=== PATIENT | male | born 2000 | race Caucasian/White ===

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

== ENCOUNTER 2022-05-21 12:15 | Emergency (ER) | payer SELFPAY ==
--- OUTSIDE RECORDS SUMMARY | 2022-05-21 12:19 | XMS REPORT | Continuity of Care Document ---
:2000 Author Organization [facility] t Address [address] [place] [address] [place] [id number] Care Team Providers Name Role Phone PCP, PATIENT DOES NOT HAVE A Primary Care Physician Unavaila NELY Mahan Attending Clinician Unavailable Nely Arzate Attending Clinician MARY BETH CROWDER Attending Clinician Unavailable Mary Beth Stein Attending Clinician Payers Payer Name Policy Type Policy Number Effective Date Expiration Date [facility] [id number] 2015 CHOICE 00:00:00 Problems Condition Condition Condition Status Onset Resolution Last Treating Co mments Source Name Details Category Date Date Treatment Clinician Date No known No known Disease Unive rs active active ity of problems problems [facility] Allergies, Adverse Reactions, Alerts Allergy Allergy Status Severity Reaction(s) Onset Inactive Treating Comm ents Source Name Type Date Date Clinician NO KNOWN Drug Active Univers ALLERGIE Class ity of S [facility] Social History Social Habit Start Date Stop Date Quantity Comments Source Exposure to 2021-07-17 2021-07-27 Not sure [facility] SARS-CoV-2 (event) 00:00:00 14:04:00 Medica l Branch Alcohol intake 2015-06-19 2015-06-19 0 /d [facility] 00:00:00 00:00:00 Medical Branch Sex Assigned At [birth year] [facility] [place] 00:00:00 00:00:00 Medical Branch Smoking Status Start Date Stop Date Source Never smoker [facility] Medical Branch Medications Ordered Filled Start Stop Current Ordering Indication Dosage Frequency Signature Comments Components Source Medication Medication Date Date Medication? Clinician (SIG) Name Name dexamethaso 2021- No 10mg 10 mg, Uni vers ne 04-14 Oral, ity of (DECADRON 02:15: 01:33 [place]CE, 1 [place] 00 :00 dose, On Medic al injection 04/13/21 Bran ch 10 mg at 2014, STAT chlorhexidi Yes [id number] 15mL Swish and Univers ne 0.12 % 2-01 spit out ity of mouthwash 00:00: 15 mL 2 [place] 00 (two) Medical times Branch daily. valACYclovi Yes [id number] 500mg Take 1 Univers r 500 mg 2-01 tablet by ity of tablet 00:00: mouth 2 [place] 00 (two) Medical times Branch daily. chlorhexidi Yes [id number] 15mL Swish and Univers ne 0.12 % 2-01 spit out ity of mouthwash 00:00: 15 mL 2 [place] 00 (two) Medical times Branch daily. valACYclovi Yes [id number] 500mg Take 1 Univers r 500 mg 2-01 tablet by ity of tablet 00:00: mouth 2 [place] 00 (two) Medical times Branch daily. HYDROcodone No Unive rs -acetaminop 06-15 ity of hen (NORCO 00:00: 00:00 [place] 5) 5-325 mg 00 :00 Medical tablet Branch ibuprofen 2021- No Univers (MOTRIN) 06-15 ity of 800 mg 00:00: 00:00 [place] tablet 00 :00 Medical Branch amphetamine No Unive rs -dextroamph 05-20 ity of etamine 00:00: 00:00 [place] (ADDERALL 00 :00 Medical XR) 20 mg Branch 24 hr capsule Immunizations Ordered Filled Immunization Date Status Comments [facility] Immunization Name Name Influenza Virus 2011-01-13 Completed Universit y of Vaccine 00:00:00 [facility] Influenza Virus 2011-01-13 Completed Universit y of Vaccine 00:00:00 [facility] DTAP 2007-07-23 Completed University of 00:00:00 [facility] HEPATITIS A 2007-07-23 Completed University of 00:00:00 [facility] MMR 2007-07-23 Completed University of 00:00:00 [facility] Polio (IPV/OPV) 2007-07-23 Completed Universit y of 00:00:00 [facility] DTAP 2007-07-23 Completed University of 00:00:00 [facility] HEPATITIS A 2007-07-23 Completed University of 00:00:00 [facility] MMR 2007-07-23 Completed University of 00:00:00 [facility] Polio (IPV/OPV) 2007-07-23 Completed Universit y of 00:00:00 [facility] HEPATITIS A 2005-03-30 Completed University of 00:00:00 [facility] HEPATITIS A 2005-03-30 Completed University of 00:00:00 [facility] HIB 4 Dose Schedule 2004-06-01 Completed Unive rsity of 00:00:00 [facility] Pediarix (dtap/hep 2004-06-01 Completed Univer sity of B/ipv) 00:00:00 [facility] Pneumococcal 13 2004-06-01 Completed Universit y of Conjugate, PCV13 00:00:00 [facility] dical (Prevnar 13) Branch HIB 4 Dose Schedule 2004-06-01 Completed Unive rsity of 00:00:00 [facility] Pediarix (dtap/hep 2004-06-01 Completed Univer sity of B/ipv) 00:00:00 [facility] Pneumococcal 13 2004-06-01 Completed Universit y of Conjugate, PCV13 00:00:00 [facility] dical (Prevnar 13) Branch MMR 2003-10-03 Completed University of 00:00:00 [facility] MMR 2003-10-03 Completed University of 00:00:00 [facility] Varicella 2003-09-13 Completed University of (varivax)(chicken 00:00:00 [place] M edical pox) Branch Varicella 2003-09-13 Completed University of (varivax)(chicken 00:00:00 [place] M edical pox) Branch HIB 4 Dose Schedule 2003-03-31 Completed Unive rsity of 00:00:[address] [facility] Branch Pediarix (dtap/hep 2003-03-31 Completed Univer sity of B/ipv) 00:00:[address] [facility] Branch Pneumococcal 13 2003-03-31 Completed Universit y of Conjugate, PCV13 00:00:00 [place] Me dical (Prevnar 13) Branch HIB 4 Dose Schedule 2003-03-31 Completed Unive rsity of 00:00:[address] [facility] Branch Pediarix (dtap/hep 2003-03-31 Completed Univer sity of B/ipv) 00:00:00 [facility] Pneumococcal 13 2003-03-31 Completed Universit y of Conjugate, PCV13 00:00:00 [place] Me dical (Prevnar 13) Branch HIB 4 Dose Schedule 2002 Completed Unive rsity of 00:00:[address] [facility] Branch Pediarix (dtap/hep 2002 Completed Univer sity of B/ipv) 00:00:00 [facility] Pneumococcal 13 2002 Completed Universit y of Conjugate, PCV13 00:00:00 [place] Me dical (Prevnar 13) Branch HIB 4 Dose Schedule 2002 Completed Unive rsity of 00:00:00 [facility] Pediarix (dtap/hep 2002 Completed Univer sity of B/ipv) 00:00:00 [facility] Pneumococcal 13 2002 Completed Universit y of Conjugate, PCV13 00:00:00 [place] Me dical (Prevnar 13) Branch HIB 4 Dose Schedule 2002 Completed Unive rsity of 00:00:[address] [facility] Branch Pediarix (dtap/hep 2002 Completed Univer sity of B/ipv) 00:00:00 [facility] Pneumococcal 13 2002 Completed Universit y of Conjugate, PCV13 00:00:00 [place] Me dical (Prevnar 13) Branch HIB 4 Dose Schedule 2002 Completed Unive rsity of 00:00:[address] [facility] Branch Pediarix (dtap/hep 2002 Completed Univer sity of B/ipv) 00:00:00 [facility] Pneumococcal 13 2002 Completed Universit y of Conjugate, PCV13 00:00:00 [place] Me dical (Prevnar 13) Branch Vital Signs Vital Name Observation Time Observation Value Comments Source Systolic blood 2021-07-27 19:01:00 176 mm[Hg] Univer sity of pressure [facility] Diastolic blood 2021-07-27 19:01:00 88 mm[Hg] Unive rsity of pressure [facility] Heart rate 2021-07-27 19:01:00 97 /min [facility] Body temperature 2021-07-27 19:01:00 36.67 [facility] [place] [facility] Respiratory rate 2021-07-27 19:01:00 18 /min [facility] Body height 2021-07-27 19:01:00 185.4 cm [facility] Body weight 2021-07-27 19:01:00 140.615 kg [facility] BMI 2021-07-27 19:01:00 40.90 kg/m2 [facility] Body mass index 2021-07-27 19:01:00 99.70 % Unive rsity of (BMI) [Percentile] [facility] Per age and sex Branch Oxygen saturation in 2021-07-27 19:01:00 100 /min [facility] Arterial blood by [facility] [place] [facility] Pulse oximetry Branch Oxygen saturation in 2021-04-14 01:47:35 97 /min [facility] Arterial blood by [facility] [place] [facility] Pulse oximetry Branch Systolic blood 2021-04-14 01:39:00 149 mm[Hg] Univer sity of pressure [facility] Diastolic blood 2021-04-14 01:39:00 105 mm[Hg] Unive rsity of [facility] Heart rate 2021-04-14 00:33:00 101 /min [facility] Body temperature 2021-04-14 00:33:00 37.06 Valeri [facility] [place] [facility] Respiratory rate 2021-04-14 00:33:00 18 /min [facility] Body weight 2021-04-14 00:33:00 129.275 kg [facility] Procedures Procedure Date / Time Performed Performing Clinician Sourjefry e RAPID STREP SCREEN 2021-07-27 19:21:00 Nely Palma [facility] FOR GROUP A Medical Branch CONSENT/REFUSAL FOR 2021-07-27 18:56:59 Doctor Unassigned, No [facility] [place] DIAGNOSIS AND Name Medical Branch TREATMENT NOTICE OF PRIVACY 2021-04-14 00:26:52 Doctor Unassigned, No Univ ersity [facility] PRACTICES Name [facility] Branch CONSENT/REFUSAL FOR 2021-04-14 00:25:38 Doctor Unassigned, No [facility] [place] DIAGNOSIS AND Name Medical Branch TREATMENT Encounters Start End Encounter Admission Attending Care Care Encounter Source Date/Time Date/Time Type Type Clinicians Facility Department ID 2021-07-27 2021-07-27 Emergency X [facility] ERT [id number] Univers 14:02:00 15:17:00 NELY anirudh [facility] 2021-07-27 2021-07-27 Emergency [facility] [id number] Univers 14:02:00 15:17:00 Nely COXALYSSA [id number] i ty of [place] [id number] [facility] [id number] [facility] 084 Branch 2021-04-13 2021-04-13 Emergency X [facility] ERT [id number] Univers 18:36:00 19:51:00 MARY BETH anirudh [facility] 2021-04-13 2021-04-13 Emergency [facility] [id number] Univers 18:36:00 19:51:00 Mary Beth [facility] [id number] i ty of [place] [id number] [facility] [id number] [place] [id number] Branch Results This patient has no known results.
[2022-05-21] MEDS ORDERED: TOBRAMYCIN SULF 0.3% OPTH OINT ONE (12:43)
[2022-05-21 13:16] VITALS: BP 141/77; TEMP 98; O2SAT 98
--- NOTE | 2022-06-03 16:13 | ER ---
Nurse's Notes [facility] Name: Taiwo Heath Age: 21 yrs Sex: Male : 2000 Arrival Date: 05/21/2022 Time: 12:19 Bed 11 Private MD: Diagnosis: Other acute conjunctivitis Presentation: 05/21 12:25 Chief complaint: Patient states: "Both of my eyes are red and itchy. It started a week mb9 ago". Coronavirus screen: Vaccine status: Patient reports being unvaccinated. Ebola Screen: No symptoms or risks identified at this time. Initial Sepsis Screen: Does the patient meet any 2 criteria? No. Patient's initial sepsis screen is negative. Does the patient have a suspected source of infection? No. Patient's initial sepsis screen is negative. Risk Assessment: Do you want to hurt yourself or someone else? Patient reports no desire to harm self or others. Onset of symptoms was May 13, 2022. 12:25 Method Of Arrival: Ambulatory mb9 12:25 Acuity: GERALD 4 mb9 Triage Assessment: 12:28 General: Appears uncomfortable, Behavior is calm, cooperative. Pain: Complains of pain mb9 in right eye and left eye. EENT: Eyes red and inflammed. Reports pain in right eye and left eye. Neuro: Level of Consciousness is awake, alert, obeys commands, Oriented to person, place, time, situation, Appropriate for age. Cardiovascular: Rhythm is regular. Respiratory: Airway is patent Respiratory effort is even, unlabored, Respiratory pattern is regular, symmetrical. GI: No signs and/or symptoms were reported involving the gastrointestinal system. : No signs and/or symptoms were reported regarding the genitourinary system. Derm: Skin is pink, warm \\T\\ dry. Musculoskeletal: Range of motion: intact in all extremities. Historical: - Allergies: 12:28 No Known Allergies; mb9 - Home Meds: 12:28 None [Active]; mb9 - PMHx: 12:28 None; mb9 - PSHx: 12:28 None; mb9 - Immunization history:: Adult Immunizations up to date. - Social history:: Smoking status: Patient denies any tobacco usage or history of. Screenin:29 [facility] ED Fall Risk Assessment (Adult) History of falling in the last 3 months, mb9 including since admission No falls in past 3 months (0 pts) Confusion or Disorientation No (0 pts) Intoxicated or Sedated No (0 pts) Impaired Gait No (0 pts) Mobility Assist Device Used No (0 pt) Altered Elimination No (0 pt) Score/Fall Risk Level 0 - 2 = Low Risk Oriented to surroundings, Maintained a safe environment, Educated pt \\T\\ family on fall prevention, incl call for assistance when getting out of bed. Abuse screen: Denies threats or abuse. Nutritional screening: No deficits noted. Tuberculosis screening: No symptoms or risk factors identified. Assessment: 12:29 Reassessment: see triage assessment. mb9 Vital Signs: 12:25 Pulse 77; Resp 20; Temp 98; Pulse Ox 98% on R/A; Weight 133.81 kg; Height 6 ft. 1 in. ; mb9 Pain 5/10; 12:29 BP 141 / 77; mb9 12:25 Body Mass Index 38.92 (133.81 kg, 185.42 cm) mb9 12:25 Pain Scale: Adult 9 ED Course: 12:19 Patient arrived in ED. mr 12:25 Arm band placed on. mb9 12:27 Marquis Adams PA is PHCP. m 12:27 Phi Warren MD is Attending Physician. [facility] 12:28 Triage completed. mb9 12:29 Bed in low position. Call light in reach. Side rails up X 1. Client placed on mb9 continuous cardiac and pulse oximetry monitoring. NIBP monitoring applied. 12:29 No provider procedures requiring assistance completed. mb9 12:32 Jocy Hanna, CRISTOPHER is Primary Nurse. mb9 12:33 Patient did not have IV access during this emergency room visit. mb9 13:03 Francois Gonzalez MD is Referral Physician. [facility] Administered Medications: 12:40 Drug: Tobrex Ophthalmic Ointment 0.3 % 1 application Route: Ophthalmic; Site: both eyes;mb9 12:40 Follow up: Response: No adverse reaction mb9 Medication: 12:29 VIS not applicable for this client. mb9 Outcome: 13:03 Discharge ordered by . m 13:10 Discharged to home ambulatory. mb9 13:10 Condition: stable 13:10 Discharge instructions given to patient, Instructed on discharge instructions, follow up and referral plans. Demonstrated understanding of instructions, follow-up care, medications, Prescriptions given X 1. 13:10 Patient left the ED. mb9 Signatures: Marquis Adams PA PA jmm Rivera Jocy mr Hanna, Jocy Guzman RN RN mb9
--- NOTE | 2022-06-03 16:13 | EDPHYS ---
Physician Documentation [facility] Name: Taiwo Heath Age: 21 yrs Sex: Male : 2000 Arrival Date: 05/21/2022 Time: 12:19 Bed 11 Private MD: ED Physician Phi Warren Historical: - Allergies: 05/21 12:28 No Known Allergies; mb9 - Home Meds: 12:28 None [Active]; mb9 - PMHx: 12:28 None; mb9 - PSHx: 12:28 None; mb9 - Immunization history:: Adult Immunizations up to date. - Social history:: Smoking status: Patient denies any tobacco usage or history of. Vital Signs: 12:25 Pulse 77; Resp 20; Temp 98; Pulse Ox 98% on R/A; Weight 133.81 kg; Height 6 ft. 1 in. ; mb9 Pain 5/10; 12:29 BP 141 / 77; mb9 12:25 Body Mass Index 38.92 (133.81 kg, 185.42 cm) mb9 12:25 Pain Scale: Adult mb9 MDM: 12:33 Patient medically screened. [facility] 13:02 Data reviewed: vital signs, nurses notes. I considered the following discharge [facility] prescriptions or medication management in the emergency department Medications were administered in the Emergency Department. See MAR. Administered Medications: 12:40 Drug: Tobrex Ophthalmic Ointment 0.3 % 1 application Route: Ophthalmic; Site: both eyes;mb9 12:40 Follow up: Response: No adverse reaction mb9 Disposition: 13:33 Co-signature as Attending Physician, Phi Warren MD I reviewed the patient's care rt provided by the Advanced Practice Provider and agree with the diagnosis and treatment plan. Disposition Summary: 05/21/22 13:03 Discharge Ordered Location: [facility] Condition: Stable [facility] Diagnosis - Other acute conjunctivitis [facility] Followup: [facility] - With: Francois Gonzalez MD - When: 2 - 3 days - Reason: Recheck today's complaints, Continuance of care, Re-evaluation by your physician Discharge Instructions: - Discharge Summary Sheet jmm - Bacterial Conjunctivitis, Adult m Forms: - Medication Reconciliation Form [facility] - Thank You Letter jmm - Antibiotic Education jmm - Prescription Opioid Use jm Prescriptions: - tobramycin 0.3 % Ophthalmic ointment - instill 0.25 inch by OPHTHALMIC route every 4 hours for 7 days; 1 Unspecified; nichol Refills: 0, Product Selection Permitted Signatures: Marquis Adams PA PA jmm Breneman, Mary Beth, RN RN mb9 Phi Warren MD MD rt
== END 2022-05-21 13:10 | disposition home or self-care (01) ==
LOC: ER 12:15
DX: H10.30 Unspecified acute conjunctivitis, unspecified eye (principal)
CPT/HCPCS: 99283

== ENCOUNTER → 2023-03-05 | Emergency (ER) | payer SELFPAY ==
[~2023-03-05] MED LIST: ACETAMINOPHEN 500 MG TAB ONE; AZITHROMYCIN 250 MG TAB ONE; IBUPROFEN 400 MG TAB ONE; PROMETHAZINE 25 MG TABLET ONE
--- OUTSIDE RECORDS SUMMARY | 2023-03-05 18:36 | XMS REPORT | Continuity of Care Document ---
Author Name Unknown Address [address] [facility] [address] [place], [place] [address] [place] [address] thconnect Address [address] [facility] [address] [place] [address] Care Team Providers Care Metal Or Wood Blocker Name Role Phone Pcp, Patient Does Not Have A Primary Care Physic karen NELY GARCIA Attending Clinician Unavailable Nely Arzate Attending Clinician [phone] Doctor Unassigned, [facility] [place] Attending Clinician U MARY BETH Tobias Attending Clinician Unavailable Mary Beth Stein Attending Clinician Payers Payer Name Policy Type Policy Number Effective Date Expirati on Date Source [employer] [id number] 2015 00:00:00 Problems Condition Name Condition Details Condition Category Status Onset Date Resolution Date Last Treatment Date Treating Clinician Comments Source No known active problems No known active problems Disease [facility] Allergies, Adverse Reactions, Alerts Allergy Name Allergy Type Status Severity Reaction(s) Onset Date Inactive Date Treating Clinician Comments Source NO KNOWN ALLERGIE S Drug Class Active [facility] Social History Social Habit Start Date Stop Date Quantity Comments Source Sexual orientation U [facility] History of Social function 2021-09-21 00:00:00 2021-09-21 00:00:00 [facility] Exposure to SARS-CoV-2 (event) 2021-07-17 00:00:00 2021-07-27 14:04:00 Not sure [facility] Alcohol intake 2015-06-19 00:00:00 2015-06-19 00:00:00 0 /d [facility] Sex Assigned At 2000 00:00:00 2000 00:00:00 [facility] Smoking Status Start Date Stop Date Source Never smoked tobacco [facility] Medications Ordered Medication Name Filled Medication Name Start Date Stop Date Current Medication? Ordering Clinician Indication Dosage Frequency Signature (SIG) Comments Components Source dexamethaso ne (DECADRON PHOSPHATE) injection 10 mg 04-14 02:15: 00 04-14 01:33 :00 No 10mg 10 mg, Oral, ONCE, 1 dose, On Mon04/13/21 at 2015, STAT [facility] valACYclovi r 500 mg tablet 04-13 00:00: 00 Yes [id number] 500mg Take 1 tablet by mouth 2 (two) times daily. [facility] chlorhexidi ne 0.12 % mouthwash 04-13 00:00: 00 Yes [id number] 15mL Swish and spit out 15 mL 2 (two) times daily. [facility] valACYclovi r 500 mg tablet 04-13 00:00: 00 Yes [id number] 500mg Take 1 tablet by mouth 2 (two) times daily. [facility] chlorhexidi ne 0.12 % mouthwash 04-13 00:00: 00 Yes [id number] 15mL Swish and spit out 15 mL 2 (two) times daily. [facility] valACYclovi r 500 mg tablet 04-13 00:00: 00 Yes [id number] 500mg Take 1 tablet by mouth 2 (two) times daily. [facility] chlorhexidi ne 0.12 % mouthwash 04-13 00:00: 00 Yes [id number] 15mL Swish and spit out 15 mL 2 (two) times daily. [facility] HYDROcodone -acetaminop hen (NORCO 5) 5-325 mg tablet 4 00:00: 00 04-13 00:00 :00 No [facility] ibuprofen (MOTRIN) 800 mg tablet 06-15 00:00: 00 04-13 00:00 :00 No [facility] amphetamine -dextroamph etamine (ADDERALL XR) 20 mg 24 hr capsule 05-20 00:00: 00 04-13 00:00 :00 No [facility] Immunizations Ordered Immunization Name Filled Immunization Name Date Status Comments Source Influenza Virus Vaccine 2011-01-13 00:00:00 Completed [facility] Influenza Virus Vaccine 2011-01-13 00:00:00 Completed [facility] DTAP 2007-07-23 00:00:00 Completed [facility] HEPATITIS A 2007-07-23 00:00:00 Completed [facility] MMR 2007-07-23 00:00:00 Completed [facility] Polio (IPV/OPV) 2007-07-23 00:00:00 Completed [facility] DTAP 2007-07-23 00:00:00 Completed [facility] HEPATITIS A 2007-07-23 00:00:00 Completed [facility] MMR 2007-07-23 00:00:00 Completed [facility] Polio (IPV/OPV) 2007-07-23 00:00:00 Completed [facility] HEPATITIS A 2005-03-30 00:00:00 Completed [facility] HEPATITIS A 2005-03-30 00:00:00 Completed [facility] HIB 4 Dose Schedule 2004-06-01 00:00:00 Completed [facility] Pediarix (dtap/hep B/ipv) 2004-06-01 00:00:00 Completed [facility] Pneumococcal 13 Conjugate, PCV13 (Prevnar 13) 2004-06-01 00:00:00 Completed [facility] HIB 4 Dose Schedule 2004-06-01 00:00:00 Completed [facility] Pediarix (dtap/hep B/ipv) 2004-06-01 00:00:00 Completed [facility] Pneumococcal 13 Conjugate, PCV13 (Prevnar 13) 2004-06-01 00:00:00 Completed [facility] MMR 2003-10-03 00:00:00 Completed [facility] MMR 2003-10-03 00:00:00 Completed [facility] Varicella (varivax)(chicken pox) 2003-09-13 00:00:00 Completed [facility] Varicella (varivax)(chicken pox) 2003-09-13 00:00:00 Completed [facility] HIB 4 Dose Schedule 2003-03-31 00:00:00 Completed [facility] Pediarix (dtap/hep B/ipv) 2003-03-31 00:00:00 Completed [facility] Pneumococcal 13 Conjugate, PCV13 (Prevnar 13) 2003-03-31 00:00:00 Completed [facility] HIB 4 Dose Schedule 2003-03-31 00:00:00 Completed [facility] Pediarix (dtap/hep B/ipv) 2003-03-31 00:00:00 Completed [facility] Pneumococcal 13 Conjugate, PCV13 (Prevnar 13) 2003-03-31 00:00:00 Completed [facility] HIB 4 Dose Schedule 2002 00:00:00 Completed [facility] Pediarix (dtap/hep B/ipv) 2002 00:00:00 Completed [facility] Pneumococcal 13 Conjugate, PCV13 (Prevnar 13) 2002 00:00:00 Completed [facility] HIB 4 Dose Schedule 2002 00:00:00 Completed [facility] Pediarix (dtap/hep B/ipv) 2002 00:00:00 Completed [facility] Pneumococcal 13 Conjugate, PCV13 (Prevnar 13) 2002 00:00:00 Completed [facility] Pneumococcal 13 Conjugate, PCV13 (Prevnar 13) 2002 00:00:00 Completed [facility] HIB 4 Dose Schedule 2002 00:00:00 Completed [facility] Pediarix (dtap/hep B/ipv) 2002 00:00:00 Completed [facility] Pneumococcal 13 Conjugate, PCV13 (Prevnar 13) 2002 00:00:00 Completed [facility] HIB 4 Dose Schedule 2002 00:00:00 Completed [facility] Pediarix (dtap/hep B/ipv) 2002 00:00:00 Completed [facility] DTAP Unknown Completed [facility] HIB 4 Dose Schedule Unknown Completed [facility] HIB 4 Dose Schedule Unknown Completed [facility] HIB 4 Dose Schedule Unknown Completed [facility] HIB 4 Dose Schedule Unknown Completed [facility] HEPATITIS A Unknown Completed [facility] HEPATITIS A Unknown Completed [facility] Influenza Virus Vaccine Unknown Completed [facility] MMR Unknown Completed [facility] MMR Unknown Completed [facility] Pediarix (dtap/hep B/ipv) Unknown Completed [facility] Pediarix (dtap/hep B/ipv) Unknown Completed [facility] Pediarix (dtap/hep B/ipv) Unknown Completed [facility] Pediarix (dtap/hep B/ipv) Unknown Completed [facility] Pneumococcal 13 Conjugate, PCV13 (Prevnar 13) Unknown Completed [facility] Pneumococcal 13 Conjugate, PCV13 (Prevnar 13) Unknown Completed [facility] Pneumococcal 13 Conjugate, PCV13 (Prevnar 13) Unknown Completed [facility] Pneumococcal 13 Conjugate, PCV13 (Prevnar 13) Unknown Completed [facility] Polio (IPV/OPV) Unknown Completed [facility] Varicella (varivax)(chicken pox) Unknown Completed [facility] Vital Signs Vital Name Observation Time Observation Value Comments S ource Systolic blood pressure 2021-07-27 19:01:00 176 mm[Hg] [facility] Diastolic blood pressure 2021-07-27 19:01:00 88 mm[Hg] [facility] Heart rate 2021-07-27 19:01:00 97 /min [facility] Body temperature 2021-07-27 19:01:00 36.67 Valeri [facility] Respiratory rate 2021-07-27 19:01:00 18 /min [facility] Body height 2021-07-27 19:01:00 185.4 cm [facility] Body weight 2021-07-27 19:01:00 140.615 kg [facility] BMI 2021-07-27 19:01:00 40.90 kg/m2 [facility] Body mass index (BMI) [Percentile] Per age and sex 2021-07-27 19:01:00 99.70 % [facility] Oxygen saturation in Arterial blood by Pulse oximetry 2021-07-27 19:01:00 100 /min [facility] Oxygen saturation in Arterial blood by Pulse oximetry 2021-04-14 01:47:35 97 /min [facility] Systolic blood pressure 2021-04-14 01:39:00 149 mm[Hg] [facility] Diastolic blood pressure 2021-04-14 01:39:00 105 mm[Hg] [facility] Heart rate 2021-04-14 00:33:00 101 /min [facility] Body temperature 2021-04-14 00:33:00 37.06 Valeri [facility] Respiratory rate 2021-04-14 00:33:00 18 /min [facility] Body weight 2021-04-14 00:33:00 129.275 kg [facility] Procedures Procedure Date / Time Performed Performing Clinicia n Source RAPID STREP SCREEN FOR GROUP A 2021-07-27 19:21:00 Nely Garcia [facility] CONSENT/REFUSAL FOR DIAGNOSIS AND TREATMENT 2021-07-27 18:56:59 Doctor Unassigned, [facility] NOTICE OF PRIVACY PRACTICES 2021-04-14 00:26:52 Doctor Unassigned, [facility] CONSENT/REFUSAL FOR DIAGNOSIS AND TREATMENT 2021-04-14 00:25:38 Doctor Unassigned, [facility] Encounters Start Date/Time End Date/Time Encounter Type Admission Type Attending [facility] Care Facility Care Department Encounter ID Source 2021-07-27 14:02:00 2021-07-27 15:17:00 Emergency X NELY GARCIA [facility] ERT [id number] [facility] 2021-07-27 14:02:00 2021-07-27 15:17:00 Emergency Nely Garcia [facility] 1..[id number] [facility] 2021-04-15 00:00:00 2021-04-15 00:00:00 Patient Secure Msg Doctor Unassigned, [facility] 1..840.114 [id number] [facility] 2021-04-13 18:36:00 2021-04-13 19:51:00 Emergency X MARY BETH CROWDER [facility] ERT [id number] [facility] 2021-04-13 18:36:00 2021-04-13 19:51:00 Emergency Mary Beth Crowder S [facility] 1..[id number] [facility]
--- NOTE | 2023-03-05 19:41 | ER ---
Nurse's Notes [facility] Name: Taiwo Heath Age: 22 yrs Sex: Male : 2000 Arrival Date: 03/05/2023 Time: 18:32 Bed IW2 Private MD: Diagnosis: Oral ulcers, aphthous ulcers , acute pharyngitis Presentation: 03/05 18:58 Chief complaint: Patient states: STATES FEVER AND FLU SYMPTOMS WITH BODY ACHES X 4 db DAYS. STATES TOOK DAYQUIL TODAY. STATES ALSO HAS SORES IN MOUTH. Coronavirus screen: Vaccine status: Patient reports being unvaccinated. Client denies travel out of the [place] in the last 14 days. At this time, the client does not indicate any symptoms associated with coronavirus-19. Ebola Screen: Patient negative for fever greater than or equal to 101.5 degrees Fahrenheit, and additional compatible Ebola Virus Disease symptoms Patient denies exposure to infectious person. Patient denies travel to an Ebola-affected area in the 21 days before illness onset. No symptoms or risks identified at this time. Initial Sepsis Screen: Does the patient meet any 2 criteria? HR > 90 bpm. Does the patient have a suspected source of infection? No. Patient's initial sepsis screen is negative. Risk Assessment: Do you want to hurt yourself or someone else? Patient reports no desire to harm self or others. Onset of symptoms was March 05, 2023. 18:58 Method Of Arrival: Ambulatory db 18:58 Acuity: GERALD 4 db Triage Assessment: 19:00 General: Appears in no apparent distress. comfortable, Behavior is calm, cooperative. db Pain: Complains of pain in mouth. Neuro: Level of Consciousness is awake, alert, obeys commands, Oriented to person, place, time, situation. Historical: - Allergies: 18:59 No Known Allergies; db - PMHx: 18:59 None; db - Immunization history:: Client reports having NOT received the Covid vaccine. - Social history:: Smoking status: Patient denies any tobacco usage or history of. - Family history:: not pertinent. Screenin:00 [facility] ED Fall Risk Assessment (Adult) History of falling in the last 3 months, ko1 including since admission No falls in past 3 months (0 pts). Abuse screen: Denies threats or abuse. Denies injuries from another. Nutritional screening: No deficits noted. Tuberculosis screening: No symptoms or risk factors identified. Assessment: 20:00 Pain: Complains of pain in mouth. ko1 Vital Signs: 18:58 BP 164 / 92; Pulse 108; Resp 18; Temp 99.3; Pulse Ox 99% ; Weight 136.08 kg; Height 6 db ft. 0 in. ; 18:58 Body Mass Index 40.69 (136.08 kg, 182.88 cm) db ED Course: 18:34 Patient arrived in ED. im 18:59 Triage completed. db 19:00 Arm band placed on Patient placed in waiting room. db 19:05 Jorge Alberto Beth MD is Attending Physician. sp4 20:12 Patient has correct armband on for positive identification. Provided Education on: na. ko1 20:12 No provider procedures requiring assistance completed. Patient did not have IV access ko1 during this emergency room visit. Administered Medications: 20:00 Drug: Ibuprofen PO 800 mg PO once Route: PO; ko1 20:00 Drug: AZITHromycin PO 500 mg PO once Route: PO; ko1 20:00 Drug: Promethazine PO 25 mg PO once Route: PO; ko1 20:00 Drug: Acetaminophen PO 1000 mg PO once Route: PO; ko1 Medication: 20:00 VIS not applicable for this client. ko1 Outcome: 19:40 Discharge ordered by . sp4 20:12 Discharged to home ambulatory, ko1 20:12 Condition: stable 20:12 Discharge instructions given to patient, Instructed on discharge instructions, follow up and referral plans. medication usage, Demonstrated understanding of instructions, follow-up care, medications, Prescriptions given X 3, 20:13 Patient left the ED. ko1 Signatures: Ximena Wheeler RN RN ko1 Shannon Guerrier RN RN db Jorge Alberto Beth MD MD sp4 Hanna Gamboa im Corrections: (The following items were deleted from the chart) 19:00 18:58 Chief complaint: Patient states: STATES FEVER AND FLU SYMPTOMS WITH BODY ACHES X db 4 DAYS. STATES TOOK DAYQUIL TODAY db
--- NOTE | 2023-03-05 19:41 | EDPHYS ---
Physician Documentation [facility] Name: Taiwo Heath Age: 22 yrs Sex: Male : 2000 Arrival Date: 03/05/2023 Time: 18:32 Bed IW2 Private MD: ED Physician Jorge Alberto Beth HPI: 03/05 19:06 This 22 yrs old Male presents to ER via Ambulatory with complaints of Flu sp4 Symptoms. 19:33 22-year-old male presents with 4 days of low-grade fever of 100.2 at the max. Body sp4 aches also sore throat and painful oral ulcers. Patient states that in the past he has had MIRM - Mycoplasma-Induced Rash and Mucositis. Patient states that in the past Z-Nitesh would help. Some Magic mouthwash would help. . Historical: - Allergies: 18:59 No Known Allergies; db - PMHx: 18:59 None; db - Immunization history:: Client reports having NOT received the Covid vaccine. - Social history:: Smoking status: Patient denies any tobacco usage or history of. - Family history:: not pertinent. ROS: 19:33 Constitutional: Positive low-grade fever, positive sore throat, positive oral ulcers, sp4 positive body aches 19:33 All other systems are negative, Exam: 19:33 Constitutional: This is a well developed, well nourished patient who is awake, alert, sp4 and in no acute distress. Head/Face: Normocephalic, atraumatic. Eyes: Pupils equal round and reactive to light, extra-ocular motions intact. Lids and lashes normal. Conjunctiva and sclera are not injected. Cornea within normal limits. Periorbital areas with no swelling, redness, or edema. ENT: Nares patent. No nasal discharge, no septal abnormalities noted. Tympanic membranes are normal and external auditory canals are clear. At her oral source, consistent with aphthous ulcers. Signs of bilateral pharyngitis Neck: Trachea midline, no thyromegaly or masses palpated, and no cervical lymphadenopathy. Supple, full range of motion without nuchal rigidity, or vertebral point tenderness. Chest/axilla: Normal chest wall appearance and motion. Nontender with no deformity. No lesions are appreciated. Cardiovascular: Regular rate and rhythm with a normal S1 and S2. No gallops, murmurs, or rubs. Normal PMI, no JVD. No pulse deficits. Respiratory: Lungs have equal breath sounds bilaterally, clear to auscultation and percussion. No rales, rhonchi or wheezes noted. No increased work of breathing, no retractions or nasal flaring. Abdomen/GI: Soft, non-tender, with normal bowel sounds. No distension or tympany. No guarding or rebound. No evidence of tenderness throughout. Back: No spinal tenderness. No costovertebral tenderness. Skin: Warm, dry with normal turgor. Normal color with no rashes, no lesions, and no evidence of cellulitis. MS/ Extremity: Pulses equal, no cyanosis. Neurovascular intact. Full, normal range of motion. Neuro: Awake and alert, GCS 15, oriented to person, place, time, and situation. Cranial nerves II-XII grossly intact. Motor strength 5/5 in all extremities. Sensory grossly intact. Psych: Awake, alert, with orientation to person, place and time. Behavior, mood, and affect are within normal limits Vital Signs: 18:58 BP 164 / 92; Pulse 108; Resp 18; Temp 99.3; Pulse Ox 99% ; Weight 136.08 kg; Height 6 db ft. 0 in. ; 18:58 Body Mass Index 40.69 (136.08 kg, 182.88 cm) db MDM: 19:32 Patient medically screened. sp4 19:37 Differential Diagnosis sepsis, flu, COVID-19, aphthous ulcers. Data reviewed: vital sp4 signs, nurses notes, old medical records. ED course: Oral ulcers and pharyngitis- will prescribe Z-Nitesh, also Magic mouthwash and high-dose ibuprofen. Administered Medications: 20:00 Drug: Ibuprofen PO 800 mg PO once Route: PO; ko1 20:00 Drug: AZITHromycin PO 500 mg PO once Route: PO; ko1 20:00 Drug: Promethazine PO 25 mg PO once Route: PO; ko1 20:00 Drug: Acetaminophen PO 1000 mg PO once Route: PO; ko1 Disposition Summary: 03/05/23 19:40 Discharge Ordered Problem: new sp4 Symptoms: have improved sp4 Condition: Stable sp4 Diagnosis - Oral ulcers, aphthous ulcers , acute pharyngitis sp4 Followup: sp4 - With: Private Physician - When: 7 - 10 days - Reason: Recheck today's complaints Discharge Instructions: - Discharge Summary Sheet sp4 - Oral Ulcers sp4 Forms: - Patient Portal Instructions sp4 Prescriptions: - Benadryl 25 mg Oral capsule - take 1 capsule ORAL route every 8 hours for oral ulcer pain; 60 capsule; sp4 Refills: 0, Product Selection Permitted - Ibuprofen 800 mg Oral Tablet - take 1 tablet ORAL route every 8 hours As needed take with food; 30 tablet; sp4 Refills: 0, Product Selection Permitted - Zithromax Z-Nitesh 250 mg Oral Tablet - take 1 tablet ORAL route as directed for 5 days Day 1 - take two (2) tablets sp4 one time. Day 2, 3, 4 , 5 take one (1) tablet once daily.; 6 tablet; Refills: 0, Product Selection Permitted Signatures: Ximena Wheeler RN RN koShannon Live RN RN db Potepalov, Sergey, MD MD sp4
[2023-03-05 21:30] VITALS: BP 164/92; TEMP 99.3; O2SAT 99
== END ==
LOC: ER 18:32
DX: K12.0 Recurrent oral aphthae (principal); J02.9 Acute pharyngitis, unspecified; Z28.310 Unvaccinated for COVID-19
CPT/HCPCS: 99283; Q0169

== ENCOUNTER → 2023-03-12 | Emergency (ER) | payer SELFPAY ==
[~2023-03-12] MED LIST changes: -ACETAMINOPHEN 500 MG TAB ONE; -AZITHROMYCIN 250 MG TAB ONE; +CLINDAMYCIN 600MG/D5W 50 ML IV ONE; +HYDROCODONE/APAP 10/325 TAB ONE; -IBUPROFEN 400 MG TAB ONE; +KETOROLAC 30 MG/ML INJ ONE; +NA CHLORIDE 0.9% 1,000 ML ONE; -PROMETHAZINE 25 MG TABLET ONE
--- OUTSIDE RECORDS SUMMARY | 2023-03-12 12:53 | XMS REPORT | Continuity of Care Document ---
Author Name Unknown Address [address] [place] [address] thconnect Address [address] [place] [address] [address] [place] [address] Care Team Providers Care Head Waitress Name Role Phone Unavailable Unavailable Unavailable
[2023-03-12 13:32] LABS: Absolute Lymphocytes (CBC) 9.1 K/uL (0.7-4.9); Hematocrit 44.7 % (39.6-49.0); Lymphocytes % 59.2 % (15.3-44.8); MCV 91.4 fL (80-100); MPV 9.4 fL (7.6-11.3); Platelets 176 thou/uL (152-406); RBC Red Blood Cell Count 4.89 M/uL (4.33-5.43)
[2023-03-12 13:45] LABS: Potassium 4.4 mEq/L (3.5-5.1)
[2023-03-12 14:07] LABS: Blood Morphology Comment NOT SEEN (NOT SEEN); Platelet Estimate ADEQ; White Blood Cell Scan OK (OK)
--- NOTE | 2023-03-12 14:30 | RAD REPORT ---
EXAM DESCRIPTION: CT - Soft Tissue Neck W/Contr CLINICAL HISTORY: Fever;Sore throat Fever, sore throat COMPARISON: <Comparisons> TECHNIQUE All CT scans are performed using dose optimization technique as appropriate and may includ e automated exposure control or mA/KV adjustment according to patient size. FINDINGS: Nasopharyngeal tissues are normal in appearance. Fossa Rosenmller are normal. Enlargement of both palatine tonsils is seen palate well-formed fluid collection to suggest peritonsi llar abscess. Tongue base structures are normal. Epiglottis and aryepiglottic folds are normal. Piriform sinuses are well aerated. The vocal cords are normal in appearance. Normal size thyroid gland. Salivary glands are normal in appearance. Mildly prominent lymph nodes are seen throughout the neck a nd both submandibular and bilateral jugular chain locations, largest on the right measuring 21 mm. Upper lung vicente are clear. Included intracranial contents are unremarkable. No evidence of prevertebral abscess. IMPRESSION: Both palatine tonsils are significantly enlarged without evidence of well-formed periton sillar abscess. No prevertebral abscess.
--- NOTE | 2023-03-12 16:06 | ER ---
Nurse's Notes [facility] Name: Taiwo Heath Age: 22 yrs Sex: Male : 2000 Arrival Date: 03/12/2023 Time: 12:49 Bed 5 Private MD: Diagnosis: Acute recurrent tonsillitis, unspecified Presentation: 03/12 13:03 Chief complaint: Patient states: Pt c/o sore throat since 03/02/23. Pt evaluated in ED hb x 3 times this week. Pt states no relief with steroids and abx. Pt states he feels worse and has developed more "pus pockets" in his throat. Coronavirus screen: Vaccine status: Patient reports being unvaccinated. sore throat. Ebola Screen: Patient negative for fever greater than or equal to 101.5 degrees Fahrenheit, and additional compatible Ebola Virus Disease symptoms Patient denies exposure to infectious person. Patient denies travel to an Ebola-affected area in the 21 days before illness onset. No symptoms or risks identified at this time. Initial Sepsis Screen: Does the patient meet any 2 criteria? No. Patient's initial sepsis screen is negative. Does the patient have a suspected source of infection? No. Patient's initial sepsis screen is negative. Risk Assessment: Do you want to hurt yourself or someone else? Patient reports no desire to harm self or others. Onset of symptoms was March 02, 2023. 13:03 Method Of Arrival: Ambulatory hb 13:03 Acuity: GERALD 3 hb Triage Assessment: 13:09 General: Appears uncomfortable, Behavior is calm, cooperative. Pain: Complains of pain hb in throat. EENT: Throat is reddened has patchy exudate has enlarged tonsils bilaterally Reports difficulty swallowing. Historical: - Allergies: 13:08 No Known Allergies; hb - Home Meds: 13:08 None [Active]; hb - PMHx: 13:08 None; hb - PSHx: 13:08 None; hb - Immunization history:: Adult Immunizations unknown. - Social history:: Smoking status: Patient denies any tobacco usage or history of. Screenin:00 [facility] ED Fall Risk Assessment (Adult) Score/Fall Risk Level. Abuse screen: Denies iw threats or abuse. Denies injuries from another. Nutritional screening: No deficits noted. On. Tuberculosis screening: No symptoms or risk factors identified. Assessment: 16:00 Reassessment: Patient appears in no apparent distress at this time. Patient and/or iw family updated on plan of care and expected duration. Pain level reassessed. Patient is alert, oriented x 3, equal unlabored respirations, skin warm/dry/pink. 16:20 Respiratory: Airway is patent Respiratory effort is even, unlabored, Breath sounds are ld1 clear bilaterally. 16:20 Reassessment: Patient appears in no apparent distress at this time. Patient and/or ld1 family updated on plan of care and expected duration. Pain level reassessed. Patient is alert, oriented x 3, equal unlabored respirations, skin warm/dry/pink. Vital Signs: 13:03 BP 134 / 86; Pulse 83; Resp 16; Temp 98.5; Pulse Ox 98% on R/A; Weight 133.81 kg; hb Height 6 ft. 0 in. ; Pain 8/10; 16:20 BP 129 / 76; Pulse 79; Resp 17; Pulse Ox 98% on R/A; ld1 13:03 Body Mass Index 40.01 (133.81 kg, 182.88 cm) hb 13:03 Pain Scale: Adult hb ED Course: 12:50 Patient arrived in ED. ts1 12:51 [facility]ada [facility] jh7 12:51 Caleb Jovel MD is Attending Physician. 7 13:08 Triage completed. hb 13:09 Arm band placed on Patient placed in an exam room, on a stretcher. hb 13:35 CBC with Diff Sent. ld1 13:35 BMP Sent. ld1 13:35 Strep Sent. ld1 13:36 Inserted saline lock: 20 gauge in left antecubital area, using aseptic technique. Blood ls5 collected. 13:54 Shayna Pop, RN is Primary Nurse. iw 14:10 CT Soft Tissue Neck W/contr In Process Unspecified. EDMS 16:21 Patient has correct armband on for positive identification. Placed in gown. Bed in low ld1 position. Call light in reach. Side rails up X2. monitoring tech on. Pulse ox on. NIBP on. Door closed. Noise minimized. Warm blanket given. 16:21 No provider procedures requiring assistance completed. IV discontinued, intact, ld1 bleeding controlled, No redness/swelling at site. Administered Medications: 14:32 Drug: NS 0.9% IV 1000 ml IV at 1 bolus Per protocol; 1000 mL bolus Route: IV; Rate: 1 iw bolus; Site: left antecubital; 14:32 Drug: Clindamycin IVPB 600 mg IVPB once over 30 mins; (mix in 50 mL) Route: IVPB; iw Infused Over: 30 mins; Site: left antecubital; 15:55 Drug: Ketorolac IVP 30 mg IVP once Route: IVP; Site: left antecubital; ld1 16:20 Drug: [place] PO 10 mg-325 mg 1 tabs PO once Route: PO; ld1 Medication: 16:00 VIS not applicable for this client. iw Outcome: 16:05 Discharge ordered by . [email or web address] 16:21 Discharged to home ambulatory, with family, ld1 16:21 Condition: stable 16:21 Discharge instructions given to patient, Instructed on discharge instructions, follow up and referral plans. medication usage, Demonstrated understanding of instructions, follow-up care, medications, Prescriptions given X 2, 16:22 Patient left the ED. ld1 Signatures: Dispatcher [employer] EDShayna Hatfield RN RN Nimo Olea RN RN Krysta Lopez RN RN ld1 Berkley Estrada FNP FNP jh7 Suarez, Lorenzo ls5 Mary Beth Espinoza PAS PAS ts1
--- NOTE | 2023-03-12 16:06 | EDPHYS ---
Physician Documentation [facility] Name: Taiwo Heath Age: 22 yrs Sex: Male : 2000 Arrival Date: 03/12/2023 Time: 12:49 Bed 5 Private MD: ED Physician Caleb Jovel HPI: 03/12 13:03 This 22 yrs old Male presents to ER via Ambulatory with complaints of Sore Throat. jh7 13:03 The patient presents with sore throat. The patient describes throat pain as burning, jh7 constant. Onset: The symptoms/episode began/occurred 10 year(s) ago. 22-year-old male presents to the ER for sore throat. He reports that this is his fourth ER visit and that his symptoms began on the . Reviewed multiple discharge papers showing that the patient had a Bicillin shot and has been on azithromycin. No PMH.. Historical: - Allergies: 13:08 No Known Allergies; hb - Home Meds: 13:08 None [Active]; hb - PMHx: 13:08 None; hb - PSHx: 13:08 None; hb - Immunization history:: Adult Immunizations unknown. - Social history:: Smoking status: Patient denies any tobacco usage or history of. ROS: 13:03 Constitutional: Negative for fever, chills, and weight loss, Eyes: Negative for injury, jh7 pain, redness, and discharge, Neck: Negative for injury, pain, and swelling, Cardiovascular: Negative for chest pain, palpitations, and edema, Respiratory: Negative for shortness of breath, cough, wheezing, and pleuritic chest pain, Abdomen/GI: Negative for abdominal pain, nausea, vomiting, diarrhea, and constipation, Back: Negative for injury and pain, MS/Extremity: Negative for injury and deformity, Skin: Negative for injury, rash, and discoloration, Neuro: Negative for headache, weakness, numbness, tingling, and seizure, 13:03 ENT: Positive for sore throat, 13:03 All other systems are negative, Exam: 13:03 Constitutional: This is a well developed, well nourished patient who is awake, alert, jh7 and in no acute distress. Head/Face: Normocephalic, atraumatic. Neck: Trachea midline, no thyromegaly or masses palpated, and no cervical lymphadenopathy. Supple, full range of motion without nuchal rigidity, or vertebral point tenderness. No Meningismus. Cardiovascular: Regular rate and rhythm with a normal S1 and S2. No gallops, murmurs, or rubs. Normal PMI, no JVD. No pulse deficits. Respiratory: Lungs have equal breath sounds bilaterally, clear to auscultation and percussion. No rales, rhonchi or wheezes noted. No increased work of breathing, no retractions or nasal flaring. Abdomen/GI: Soft, non-tender, with normal bowel sounds. No distension or tympany. No guarding or rebound. No evidence of tenderness throughout. Back: No spinal tenderness. No costovertebral tenderness. Full range of motion. Skin: Warm, dry with normal turgor. Normal color with no rashes, no lesions, and no evidence of cellulitis. MS/ Extremity: Pulses equal, no cyanosis. Neurovascular intact. Full, normal range of motion. Neuro: Awake and alert, GCS 15, oriented to person, place, time, and situation. Motor strength 5/5 in all extremities. Sensory grossly intact. Normal gait. 13:03 ENT: Posterior pharynx: Tonsils: bilaterally enlarged, with erythema, with exudate, Uvula: midline, peritonsillar mass, is not appreciated, Vital Signs: 13:03 BP 134 / 86; Pulse 83; Resp 16; Temp 98.5; Pulse Ox 98% on R/A; Weight 133.81 kg; hb Height 6 ft. 0 in. ; Pain 8/10; 16:20 BP 129 / 76; Pulse 79; Resp 17; Pulse Ox 98% on R/A; ld1 13:03 Body Mass Index 40.01 (133.81 kg, 182.88 cm) hb 13:03 Pain Scale: Adult hb MDM: 12:51 Patient medically screened. [facility] 16:06 Differential diagnosis: apthous stomatitis, group A strep tonsillitis, peritonsillar jh7 abscess pharyngitis, tonsillitis. Data reviewed: vital signs, nurses notes, lab test result(s), radiologic studies, CT scan. I considered the following discharge prescriptions or medication management in the emergency department Medications were administered in the Emergency Department. See MAR. Counseling: I had a detailed discussion with the patient and/or guardian regarding the historical points, exam findings, and any diagnostic results supporting the discharge/admit diagnosis, the need for outpatient follow up, an ENT specialist, to return to the emergency department if symptoms worsen or persist or if there are any questions or concerns that arise at home. Response to treatment: the patient's symptoms have mildly improved after treatment. 03/12 13:17 Order name: Strep; Complete Time: 15:25 [facility] 03/12 13:17 Order name: BMP; Complete Time: 14:07 [facility] 03/12 13:17 Order name: CBC with Diff; Complete Time: 14:39 [facility] 03/12 13:43 Order name: CBC Smear Scan; Complete Time: 14:39 [facility] 03/12 14:07 Order name: Manual Differential; Complete Time: 14:39 [facility] 03/12 15:27 Order name: Throat Culture [facility] 03/12 13:17 Order name: CT Soft Tissue Neck W/contr; Complete Time: 14:39 [facility] Administered Medications: 14:32 Drug: NS 0.9% IV 1000 ml IV at 1 bolus Per protocol; 1000 mL bolus Route: IV; Rate: 1 iw bolus; Site: left antecubital; 14:32 Drug: Clindamycin IVPB 600 mg IVPB once over 30 mins; (mix in 50 mL) Route: IVPB; iw Infused Over: 30 mins; Site: left antecubital; 15:55 Drug: Ketorolac IVP 30 mg IVP once Route: IVP; Site: left antecubital; ld1 16:20 Drug: [place] PO 10 mg-325 mg 1 tabs PO once Route: PO; ld1 Disposition: 03/13 08:55 Co-signature as Attending Physician, Caleb Jovel MD I reviewed the patient's care rn provided by the Advanced Practice Provider and agree with the diagnosis and treatment plan. Disposition Summary: 03/12/23 16:05 Discharge Ordered Notes: Location: Home [facility] Problem: new [facility] Symptoms: have improved [facility] Condition: Stable [facility] Diagnosis - Acute recurrent tonsillitis, unspecified [facility] Followup: [facility] - With: Private Physician - When: 2 - 3 days - Reason: Recheck today's complaints Discharge Instructions: - Discharge Summary Sheet [facility] - Tonsillitis [facility] Forms: - Medication Reconciliation Form [facility] - Thank You Letter [facility] - Antibiotic Education [facility] - Patient Portal Instructions [facility] - Leadership Thank You Letter 7 Prescriptions: - Clindamycin HCl 300 mg Oral capsule - take 1 capsule ORAL route every 8 hours for 10 days; 30 capsule; Refills: 0, [facility] Product Selection Permitted - Medrol (Nitesh) 4 mg Oral Tablets, Dose Pack - take 1 tablet ORAL route as directed - follow package instructions; 1 packet; 7 Refills: 0, Product Selection Permitted Signatures: Dispatcher [employer] Shayna Velasquez RN RN iw Nieto, Roman, MD MD rn Baxter, Heather, RN RN Krysta Lopez RN RN ld Berkley Estrada, [employer]ICE [place] [id number]
[2023-03-12 16:53] VITALS: BP 129/76; TEMP 98.5; O2SAT 98
== END ==
LOC: ER 12:49
DX: J03.91 Acute recurrent tonsillitis, unspecified (principal)
CPT/HCPCS: 36415; 70491; 80048; 85025; 87070; 87081; 96374; 96375; 99285; J7030; Q9967